=== PATIENT | male | born 1965 | race Hispanic/Latino ===

== ENCOUNTER 2020-01-31 13:45 | Outpatient (CLI) | payer BC, OTHER ==
[2020-02-01 12:54] LABS: SARS-CoV-2 MS2 Positive; SARS-CoV-2 N Gene Negative; SARS-CoV-2 S Gene Negative; SARS-CoV-2 by NAA Not Detected (NotDetected); SARS-CoV-2 orf1ab Negative
== END 2020-01-31 13:46 | disposition home or self-care (01) ==
LOC: LABBT 13:45
PROVIDERS: ATTEND Orthopaedic Surgery
DX: S82.852A Displaced trimalleolar fracture of left lower leg, initial encounter for closed fracture (principal); Z20.828 Contact with and (suspected) exposure to other viral communicable diseases
CPT/HCPCS: 87635; U0003

== ENCOUNTER 2020-02-02 11:42 | Day surgery (SDC) | payer BC ==
[2020-02-01 09:52] VITALS: BMI 28.3
[~2020-02-02 11:42] MED LIST: Bupivacaine HCl 0.5%/Epinephrine 1:200,000/PF 30 ml Vial ONE; Dexamethasone 20 MG/5 ML VIAL ONE; EPHEDRINE 25 MG/5 ML SYRINGE ONE; Lidocaine 1% PF 5 ML VIAL ONE; Ondansetron PF 4 MG/2 ML Vial ONE; PROPOFOL 200 MG/20 ML VIAL ONE
[2020-02-02] MEDS ORDERED: Fentanyl 100 MCG/2 ML VIAL ONE ×2 (12:55→13:50)
[2020-02-02] MEDS ORDERED: Midazolam HCl 2 mg/2 ml Vial ONE ×2 (12:55→13:50)
[2020-02-02] MEDS ORDERED: Dexamethasone 4 mg/ml Vial ONE (12:56)
[2020-02-02] MEDS ORDERED: Lidocaine 1% (PF) 30 ML VIAL ONE (13:34)
[2020-02-02] MEDS ORDERED: Bupivacaine HCl 0.5%/Epinephrine 1:200,000/PF 30 ml Vial ONE (13:36)
[2020-02-02] MEDS ORDERED: Famotidine/PF 20 mg/2ml Vial ONE ×2 (16:55→16:58)
--- NOTE | 2020-02-03 09:44 | RAD ---
EXAM: 3 views of the left ankle HISTORY: Ankle fracture COMPARISON: 01/25/2009 FINDINGS: 3 limited intraoperative fluoroscopic views of the ankle shows the patient is status post O RIF of the ankle fracture with plates and screws. There is better alignment of the ankle mortise. No perihardware lucency is seen. IMPRESSION: Status post ORIF of left ankle fracture
--- NOTE | 2020-02-03 10:48 | OP ---
DATE OF PROCEDURE: 02/02/2020 PREOPERATIVE DIAGNOSIS: Left trimalleolar ankle fracture. POSTOPERATIVE DIAGNOSIS: Left trimalleolar ankle fracture. PROCEDURE PERFORMED: Open reduction and internal fixation of left trimalleolar ankle fracture. ANESTHESIA: General. DOCUMENTATION LIAISON: German Shabazz PA-C TOURNIQUET TIME: 73 minutes at 300 mmHg. IMPLANTS: Synthes 7-hole 1/3 tubular plate. COMPLICATIONS: None. DRAINS: None. SPECIMENS: None. OUTCOME: Satisfactory. INDICATIONS: The patient is a 54-year-old gentleman who had a twisting injury to his left ankle while carrying asphalt shingles on a sloped roof. The patient did not fall from the roof, but did sustain a significant twisting injury with subsequent trimalleolar ankle injury. After discussion with the patient including risks and benefits, we decided to proceed with open reduction and internal fixation. Informed consent has been obtained. I believe, all questions answered. DESCRIPTION OF PROCEDURE: The patient was brought to the operating room and a time-out performed followed by induction of general anesthesia. Next, the patient was positioned supine on the OR table and a sterile prep and drape was performed of the left lower extremity. Next, the limb was exsanguinated with Esmarch bandage, tourniquet inflated to 300 mmHg. A lateral incision was then made over the lateral malleolus. After skin was sharply incised, dissection was carried down bluntly, exposing the lateral cortex of the distal fibula and the fracture. He was found to have some displaced cancellous bits of bone that was preventing a reduction to occur. These were mobilized and went and removed to allow for the reduction. The reduction was then achieved and held in place with a bone tenaculum followed by insertion of an anterior to posterior interfragmentary compression screw. This was then followed by a 7-hole 1/3 tubular plate, functioning as a neutralization device at the lateral cortex. This was held in place with 3 cortical screws proximally and 3 cancellous screws distally. At the completion of this, AP, mortise and lateral images were obtained. This showed near anatomic alignment of the ankle with reduction of both posterior and medial malleolar fragments. Next, a small incision was made at the tip of the medial malleolus. After skin sharply incised, dissection was carried down bluntly, exposing the underlying medial malleolar fracture. Two partially-threaded cancellous screws were then passed from the tip of the medial malleolus obliquely across the fracture in the distal tibial metaphysis, getting good compression across this medial malleolar fracture. This was then followed by insertion of 2 anterior to posterior interfragmentary screws, capturing the posterior malleolar fracture that was reduced with reduction of the lateral malleolus. This was done through 2 small stab wounds and under C-arm guidance, capturing the posterior malleolar segment. At the completion of this, final AP and lateral C-arm images were obtained and saved. This was followed by irrigation of the wounds and then closure. The medial and lateral wounds were closed in layers with 0 Vicryl deep followed by 2-0 Vicryl and then nylon. The small puncture wounds anteriorly were closed with simple nylon. It should be noted that during this procedure my executive assistant functioned to help hold the reduction while the lateral plate was being applied as well as maintaining reduction of the fracture and providing retraction for both placement of the lateral malleolar plates and medial malleolar screws. There were no complications. The patient tolerated the procedure well. Following dressing application, the tourniquet was let down and then the patient was transferred to recovery room in stable condition. Job ID: [id number]
== END 2020-02-02 17:35 | disposition home or self-care (01) ==
LOC: SDC 11:42
PROVIDERS: ATTEND Orthopaedic Surgery
PROC: 0QSK04Z Reposition Left Fibula with Internal Fixation Device, Open Approach (ICD-10-PCS; principal; 2020-02-02)
PROC: 0QSH04Z Reposition Left Tibia with Internal Fixation Device, Open Approach (ICD-10-PCS; principal; 2020-02-02)
DX: S82.852A Displaced trimalleolar fracture of left lower leg, initial encounter for closed fracture (principal); W18.40XA Slipping, tripping and stumbling without falling, unspecified, initial encounter
CPT/HCPCS: 76000; C1713; J0670; J0690; J1100; J2001; J2250; J2405; J2704; J3010; S0028